=== PATIENT | female | born 1945 | race Caucasian/White ===

== ENCOUNTER 2016-12-04 09:51 | Emergency (ER) | payer MEDICARE ==
--- OUTSIDE RECORDS SUMMARY | 2016-12-04 10:09 | XMS REPORT | Continuity of Care Document ---
:1945 Author Organization [facility] ([facility]) [place] [address] Phone [phone] Care Team Providers Name Role Phone Hortencia Christine Primary Care Provider [phone] Source Comments This disclosure is being made pursuant to the Care Everywhere program, applicable federal and state laws, and may not contain all informaitonavailable regarding this patient.[facility] ([facility]) Active Allergies and Adverse Reactions No Known Allergies Current Medications Prescription Sig. Disp. Refills Start Date End Date Status lisinopril-hydrochloro Take 1 Tab by 60 Tab 0 08/07/2011 Active thiazide 20-25 mg per mouth 2 times tablet daily. Indications: Hypertension cholecalciferol Take 2 Tabs by 60 Tab 3 08/07/2011 Active (VITAMIN D3) 1,000 mouth daily. unit tablet Indications: Vitamin D Deficiency aspirin 81 mg EC Take 81 mg by Active tablet mouth daily. atorvastatin 10 mg Take 10 mg by Active tablet mouth every evening. diltiazem 180 mg ER Take 180 mg by Active capsule mouth daily. hydrOXYzine HCl 10 mg Take 10 mg by Active tablet mouth every 8 hours as needed. omeprazole 20 mg XR Take 20 mg by Active tablet mouth daily. clopidogrel 75 mg Take 1 tablet (75 90 tablet 10 04/20/2016 Active tablet mg total) by mouth daily. Active Problems Problem Noted Date PVD (peripheral vascular disease) 05/22/2013 Overview: Vascular Procedures: ~ 08/09/2013 Recanalization Right above knee popliteal artery occlusion; Rotational/aspiration atherectomy using the Jetstream device; Post-atherectomy low-pressure angioplasty using 4- and 5-mm [place] ado balloons. Right lower extremity arteriography.(Sharafudin) 1. ~09/27/2013 -Recanalization of right above-knee popliteal artery occlusion. 2. Rotational/aspiration atherectomy using the Jetstream device. 3. Post-atherectomy low-pressure angioplasty using 4- and 5-mm [place] balloons. 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 Due for Pap. Mammogram normal about 06/2010. Last tetanus > 10 yrs. Pneumovax 3-4 years ago. No Zostavax - prescription written on 07/17/2011. Never had lipids checked. Screened for diabetes - blood glucose slightly high in 2010. Resolved Problems Problem Noted Date Resolved Date Chest pain, rule out acute myocardial infarction 07/14/2015 07/15/2015 Immunizations Name Dates Previously Given Next Due Influenza, PF 07/17/2011 Social History Tobacco Use Types Packs/Day Years Used Date Current Every Day Smoker Cigarettes 1 52 Smokeless Tobacco: Never Used Tobacco Cessation:Ready to Quit: Yes; Counseling Given: Yes Comments:Pt given tobacco cesstion information Alcohol Use Drinks/Week oz/Week Comments No 0 Standard drinks or equivalent 0.0 rarely Last Filed Vital Signs Vital Sign Reading Time Taken Blood Pressure 174/92 04/20/2016 8:21 AM CDT Pulse 66 04/20/2016 8:21 AM CDT Temperature 36.4 C (97.5 F) 04/20/2016 8:21 AM CDT Respiratory Rate 16 07/15/2015 8:00 AM 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 Height 1.549 m (5' 1") 07/14/2015 4:33 PM 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 Weight 62.55 kg (137 lb 14.4 oz) 04/20/2016 8:21 AM CDT Body Mass Index 26.07 04/20/2016 8:21 AM CDT Oxygen Saturation 93% 07/15/2015 10:21 AM 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 Plan of Care Date Type Specialty Providers Description 04/19/2017 Appointment [facility] V[facility] Yolie Sanabria, Subj: Appointment MD Scheduled [address] [place] [address] [phone] (Fax) 04/19/2017 Appointment S[facility] Vascular Yolie Sanabria, Subj: Appointment Scheduled [address] [place] [address] [phone] (Fax) Health Maintenance Due Date Last Done Comments HCV Screening 1945 Hepatitis B Vaccine (1 of 3 - Primary Series) 1945 Tdap Vaccine 1955 Td Vaccine 1962 Colonoscopy 1994 Zoster Vaccine 2004 Osteoporosis Screening (DXA Bone Density) 2009 Pneumococcal Vaccine (1 of 2 - PCV13) 2009 Influenza Vaccine: Seasonal (#1) 01/27/2016 07/17/2011 Lipid Disorder Screening 08/07/2016 08/07/2011 Mammogram 04/28/2017 04/28/2016 Results from Last 3 Months Not on file
[2016-12-04 10:24] LABS: Venous Blood Gas pH 7.42 (7.32-7.43)
[2016-12-04 10:27] LABS: Hematocrit 45.9 % (37.0-47.0); Mean Cell Volume 83.2 fl (78-100); Mean Corpuscular Hgb Conc 34.9 g/dl (32-36); Mean Platelet Volume 9.8 fl (6.0-9.5); Neutrophil # 5.7 K/mm3 (1.3-6.0); Neutrophil % 57.2 % (42-75.0); Platelet Count 336 K/mm3 (150-450); Red Blood Count 5.52 M/mm3 (4.2-5.4); Red Cell Distribution Width 12.3 % (11.5-14.0); White Blood Count 9.9 K/mm3 (4.0-10.5)
[2016-12-04 10:39] LABS: Prothrombin Time (Patient) 10.1 Seconds (9.4-11.4)
[2016-12-04 10:40] LABS: INR 0.97 INR (0.90-1.10); Partial Thrombolplastin Time 25.7 Seconds (24-32)
[2016-12-04 10:43] LABS: Troponin I Less than 0.017 ng/ml (0.00-0.10)
[2016-12-04 10:45] LABS: ALT 17 U/L (19-67); AST 11 U/L (0-48); Albumin * 4.2 gm/dl (3.4-5.0); Alkaline Phosphatase * 137 U/L (50-170); BNP * 90 pg/mL (5-325); BUN/Creatinine Ratio 13.2 (9.0-21.6); Bilirubin, Total 0.5 mg/dL (0.0-1.1); Blood Urea Nitrogen 9 mg/dL (3-23); Ca. Corrected For Albumin 9.4 mg/dL (8.4-10.2); Calcium * 9.9 mg/dL (7.9-10.9); Chloride 96 mmol/L (97-106); Glucose * 153 mg/dL (70-110); Sodium 137 mmol/L (132-142)
--- NOTE | 2016-12-04 10:47 | ERNOTE ---
Chest Pain/Cardiac HPI Date of Service: 12/04/16 Chief Complaint: Chest Pain Time Seen by Provider: 12/04/16 09:59 Source: patient Exam Limitations: no limitations Allergies/Adverse Reactions: Allergies No Known Allergies Allergy (Unverified 12/04/16 10:17) Home Medications: HOME MEDICATIONS Aspirin [Aspirin Enteric Coated] 81 mg PO DAILY 12/04/16 [Last Taken Unknown] Atorvastatin Calcium [Lipitor] 10 mg PO DAILY 12/04/16 [Last Taken Unknown] Clonidine HCl [Catapres] 0.1 mg PO BID #60 tablet 12/04/16 [Last Taken Unknown] Clopidogrel Bisulfate [Plavix] 75 mg PO DAILY 12/04/16 [Last Taken Unknown] Lisinopril/Hydrochlorothiazide [Lisinopril-Hctz 20-25 mg Tab] 1 each PO DAILY [Last Taken Unknown] Omeprazole [Prilosec] 20 mg PO DAILY 12/04/16 [Last Taken Unknown] Narrative: 71-year-old female presents to the emergency room for intermittent chest pain that she's been having on and off for 2 weeks. Patient states that sometimes at night she awakens and she feels anxious and has to get up and walk around. Patient also states that when she took her blood pressure home today was 160/ 100. Patient states that sometimes the pain does go into her left shoulder and her arm. But currently is not having any chest pain or chest discomfort. Does state she feels anxious. Patient is a heavy smoker. Date (Duration): 12/04/16 Timing: intermittent Severity/Quality: aching Location: central, shoulder Chest Pain Radiation: arms, back Activities at Onset: none Prior Chest Pain/Cardiac Workup: Reports: other Review of Systems - Review of Systems Constitutional: Present: See HPI, fatigue EYE: Present: no symptoms reported ENT: Present: no symptoms reported Respiratory: Present: See HPI, cough Cardiology: Present: See HPI, chest pain Gastrointestinal/Abdominal: Present: other - she states her stool is ribbon shaped. Genitourinary: Present: no symptoms reported Musculoskeletal: Present: no symptoms reported Skin: Present: no symptoms reported Neurological: Present: See HPI, anxiety Endocrine: Present: no symptoms reported Hematologic/Lymphatic: Present: no symptoms reported Psych: Present: no symptoms reported - Patient's Past Medical History Patient History - Cardiac/Respiratory: Aneurysm, Arrhythmias, COPD, Hypertension , Peripheral Vascular Disease - Family History Brother Family History - Cancer: Brain, Lung Sister Family History - Cancer: Breast Mother Family History - Cancer: Kidney Physical Exam - Physical Exam Narrative: patient appears anxious, her friend that is with her seems to be increasing her anxiety. patient BP does decrease when her friend leaves the room. General Appearance: Present: wd/wn, alert, anxious Eye Exam: Normal inspection: bilateral Ears, Nose, Throat: Present: normal ENT inspection, normal pharynx Neck: Present: normal inspection, nontender Respiratory: Present: no respiratory distress, normal breath sounds, no accessory muscle use Cardiovascular/Chest: Present: regular rate, rhythm, normal peripheral pulses Peripheral Pulses: N=norm/S=strong/W=weak/B=bound/A=absent: Radial (R): Normal, Radial (L): Normal, Dorsalis-pedis (R): Normal, Dorsalis-pedis (L): Normal Gastrointestinal/Abdominal: Present: normal bowel sounds, nontender, soft Back Exam: Present: normal inspection, normal range of motion, no vertebral tenderness Extremity Exam: Present: normal inspection, non-tender, normal range of motion, no edema Neurological Exam: Present: alert, oriented, normal mood/affect, no motor/ sensory deficits Skin Exam: Present: normal color, warm/dry Lymphatic Exam: Present: no adenopathy ED Progress - Results and Orders Patient's Lab Results:: I have reviewed the patient's lab results. - Vital Signs Patient's Vital Signs:: I have reviewed the patient's vital signs. - X-Ray X-Ray #1 X-Ray: chest Interpretation: Reviewed by me X-ray Comments: Exam Date: 12/04/2016 10:07 Ordering Physician: Latrell Pierre HISTORY: Chest Pain TWO VIEW CHEST Comparison: 01/06/2016 Technique: Upright frontal and lateral views of the chest were obtained. Findings: The cardiac silhouette is within normal limits of size. The mediastinum and hilum are with in normal limits. The lung amador demonstrate hyperinflation with scattered fibrotic change, but are otherwise are clear and unchanged. I do not see evidence for an infiltrate, effusion, definable pneumothorax or pulmonary edema. IMPRESSION: 1. HYPERINFLATION WITH MILD SCATTERED FIBROTIC CHANGE. 2. NO ACUTE CARDIOPULMONARY PROCESS. Electronically signed by Neri Tang M.D.. - Progress/Reassessment Chief Complaint: Chest Pain Progress:: Improved Plan - Plan Plan: patient given several medications for her HTN. catapress was given orally which did bring it down and kept it at a acceptable level. patient is to follow up with PCP and given information about HTN. Departure - Departure Clinical Impression: Anxiety about health Hypertension Qualifiers: Hypertension type: unspecified secondary hypertension Qualified Code(s): I15.9 - Secondary hypertension, unspecified Disposition: Home Follow Up Needed Condition: Stable Instructions: Hypertension, [id number], Managing Your High Blood Pressure Additional Instructions: Continue any previous home medications. Follow-up with your Primary care on Wednesday. Return to the emergency room with blood pressure is not able to be controlled. Referrals: Hortencia Christine MD [Primary Care Provider] - Prescriptions: Clonidine HCl [Catapres] 0.1 mg PO BID #60 tablet
[2016-12-04] MEDS ORDERED: LABETALOL HCL 5 MG/ML VIAL IV ONE ×3 (10:56→11:01)
[2016-12-04 11:04] LABS: Urine Bilirubin Negative (NEGATIVE); Urine Blood Negative /ul (NEGATIVE); Urine Ketone Negative (NEGATIVE); Urine Nitrite Negative (NEGATIVE); Urine Protein Negative (NEGATIVE); Urine Specific Gravity <=1.005 SP.GR. (1.005-1.010); Urine Urobilinogen Normal (NORMAL)
[2016-12-04 11:12] LABS: Urine Appearance Clear; Urine Color Pale Yellow
[2016-12-04 11:13] LABS: Urine Bacteria None Seen; Urine RBC None Seen /hpf (0-5); Urine WBC None Seen /hpf (0-5)
[2016-12-04] MEDS ORDERED: hydrALAZINE HCL 20 MG/ML VIAL IV ONE ×2 (11:19→12:27)
[2016-12-04] MEDS ORDERED: LORazepam 2 MG/ML DISP.SYRIN IV ONE (11:19)
[2016-12-04] MEDS ORDERED: LORazepam 2 MG/ML DISP.SYRIN ONE (11:22)
[2016-12-04] MEDS ORDERED: POTASSIUM CHLORIDE 20 MEQ TABLET.SA PO ONE (11:25)
[2016-12-04] MEDS ORDERED: hydrALAZINE HCL 20 MG/ML VIAL ONE ×2 (11:42→12:50)
[2016-12-04] MEDS ORDERED: POTASSIUM CHLORIDE 20 MEQ TABLET.SA ONE (11:43)
[2016-12-04] MEDS ORDERED: CLONIDINE HCL 0.1 MG TABLET PO ONE ×2 (14:12→16:12)
[2016-12-04] MEDS ORDERED: CLONIDINE HCL 0.1 MG TABLET ONE ×2 (14:29→16:13)
[2016-12-04 16:49] VITALS: BP 135/68
== END 2016-12-04 16:20 | disposition home or self-care (01) ==
LOC: ER 09:51
DX: I15.9 Secondary hypertension, unspecified (principal); F41.8 Other specified anxiety disorders; I72.9 Aneurysm of unspecified site; I73.9 Peripheral vascular disease, unspecified